=== PATIENT | male | born 2000 | race Caucasian/White ===

== ENCOUNTER → 2024-12-30 | Outpatient (CLI) | payer OTHER ==
--- NOTE | 2024-12-30 07:54 | US ---
EXAMINATION TYPE: US abdomen limited DATE OF EXAM: 12/30/2024 COMPARISON: NONE CLINICAL INDICATION: Male, 24 years old with history of R94.5 ABN RESULTS LIVER FUNCTION STUDIES; TECHNIQUE: Grayscale and color Doppler imaging of the right upper quadrant. FINDINGS: EXAM MEASUREMENTS: Liver Length: 15.7 cm Gallbladder Wall: 0.2 cm CBD: 0.3 cm, color Doppler imaging was utilized to isolate the common bile duct for measurement. Right Kidney: 11.5x6.7x6.1 cm CLINICAL STATISTICS MANAGER NOTES: limited scan due to overlying bowel/gas Pancreas: Obscured by bowel gas Liver: no obvious abnormalities seen Gallbladder: No stones seen Evidence for sonographic Schmitt's sign: No CBD: wnl Right Kidney: No hydronephrosis or masses seen slightly limited visualization due to overlying bowel Suboptimal evaluation of the pancreas. Visualized liver normal in size without concerning mass or stan manda dilatation. No surrounding ascites. No shadowing mobile gallstones. No right-sided hydronephrosis . IMPRESSION: Suboptimal study without focal intrahepatic mass or intrahepatic ductal dilatation. [facility], , 12/30/2024 7:52 AM
[2024-12-30 08:42] LABS: Lactic Acid, Venous 1.3 mmol/L (0.7-2.0)
[2024-12-30 10:50] LABS: INR 0.97 sec (0.93-1.11); Prothrombin Time 10.9 sec (9.9-11.9)
[2024-12-30 16:50] LABS: EBV-EA (IgG) 0.2 AI; EBV-EBNA(IgG) >8.0; EBV-VCA (IgG) 6.8 AI
[2024-12-31 09:58] LABS: % Iron Saturation 43.95 (15.00-50.00); ALT 190 U/L (10-49); AST 58 U/L (14-35); Albumin 4.3 g/dL (3.8-4.9); Albumin/Globulin Ratio 1.87 Ratio (1.60-3.17); Alkaline Phosphatase 105 U/L (41-126); Amylase 134 U/L (23-121); BUN/Creat Ratio 13.29 Ratio (12.00-20.00); Blood Urea Nitrogen 9.3 mg/dL (9.0-27.0); Calcium 9.6 mg/dL (8.7-10.3); Carbon Dioxide 18.3 mmol/L (21.6-31.8); Chloride 106 mmol/L (96-109); Globulin 2.3 g/dL (1.6-3.3); Glucose 98 mg/dL (70-110); Iron 149 UG/DL (65-175); Lipase 19 U/L (14-60); Potassium 4.4 mmol/L (3.5-5.5); Sodium 141 mmol/L (135-145); Total Bilirubin 0.5 mg/dL (0.3-1.2); Total Iron Binding Capacity 339 UG/DL (228-460); Total Protein 6.6 g/dL (6.2-8.2)
[2024-12-31 12:48] LABS: Smooth Muscle Antibody 6 UNITS (<20)
[2024-12-31 14:04] LABS: Lead, Blood <0.5 ug/dL (<5.0)
== END | disposition home or self-care (01) ==
LOC: RADUSWWP 07:19
PROVIDERS: ATTEND Family Medicine
DX: R94.5 Abnormal results of liver function studies (principal); R74.8 Abnormal levels of other serum enzymes; R89.9 Unspecified abnormal finding in specimens from other organs, systems and tissues
CPT/HCPCS: 76705; 80053; 82140; 82150; 82728; 83516; 83540; 83550; 83605; 83655; 83690; 85610; 85652; 86663; 86664; 86665

== ENCOUNTER 2025-03-03 09:26 | Emergency (ER) | payer OTHER ==
[2025-03-03 09:44] VITALS: BP 130/82; PULSE 83; RESP 20; TEMP 97.4
--- NOTE | 2025-03-03 10:35 | ED ---
Recheck HPI - General Chief Complaint: Recheck/Abnormal Lab/Rx Stated Complaint: Near syncope Time Seen by Provider: 03/03/25 10:26 Source: patient, family, RN notes reviewed Mode of arrival: ambulatory Limitations: no limitations - History of Present Illness Initial Comments: 24-year-old male presenting for episode of near syncope 1 hour ago. States he was at work when he started to feel became lightheaded and pale and fell to the ground. Denies hitting his head or any injuries from the fall. Patient states he started taking Clozaril 4 mg for schizophrenia last night. States he previously took this medication about 5 months ago and was taken off of it due to the side effects. States he follows with Dr. Chiki Aguirre who prescribed this medication for him. Denies headache, chest pain, shortness of breath, abdominal pain. Denies any other significant health conditions. - Related Data Allergies Allergy/AdvReac Type Severity Reaction Status Date / Time No Known Allergies Allergy Verified 03/03/25 09:44 Review of Systems ROS Statement: Those systems with pertinent positive or pertinent negative responses have been documented in the HPI. ROS Other: All systems not noted in ROS Statement are negative. Past Medical History Past Medical History: No Reported History Past Surgical History: No Surgical Hx Reported Past Psychological History: Schizophrenia Smoking Status: Current every day smoker General Exam Limitations: no limitations General appearance: alert, in no apparent distress Head exam: Present: atraumatic, normocephalic, normal inspection Eye exam: Present: normal appearance, PERRL, EOMI. Absent: scleral icterus, conjunctival injection, periorbital swelling Respiratory exam: Present: normal lung sounds bilaterally. Absent: respiratory distress, wheezes, rales, rhonchi, stridor Cardiovascular Exam: Present: regular rate, normal rhythm, normal heart sounds. Absent: systolic murmur, diastolic murmur, rubs, gallop, clicks GI/Abdominal exam: Present: soft, normal bowel sounds. Absent: distended, tenderness, guarding, rebound, rigid Neurological exam: Present: alert, oriented X3 Psychiatric exam: Present: normal affect, normal mood Skin exam: Present: warm, dry, intact, normal color. Absent: rash Course Vital Signs 03/03/25 09:41 Temperature 97.4 F L Pulse Rate 83 Respiratory 20 Rate Blood Pressure 130/82 O2 Sat by Pulse 99 Oximetry Medical Decision Making - Medical Decision Making Was pt. sent in by a medical professional or institution (, [place], [facility], urgent care, hospital, or shelter...) When possible be specific @ -No Did you speak to anyone other than the patient for history (EMS, parent, family, police, friend...)? What history was obtained from this source @ -No Did you review nursing and triage notes (agree or disagree)? Why? @ -I reviewed and agree with nursing and triage notes Were old charts reviewed (outside hosp., previous admission, EMS record, old EKG, old radiological studies, urgent care reports/EKG's, shelter records)? Report findings @ -No old charts were reviewed Differential Diagnosis (chest pain, altered mental status, abdominal pain women, abdominal pain men, vaginal bleeding, weakness, fever, dyspnea, syncope, headache, dizziness, GI bleed, back pain, seizure, CVA, palpatations, mental health, musculoskeletal)? @ -Differential Syncope: Valvular disease, hypertrophic cardiomyopathy, pulmonary embolism, tamponade, tachycardia, bradycardia, OH, hypovolemia, hemorrhage, dissection, anemia, intracranial hemorrhage, seizure, hypoglycemia, carbon monoxide poisoning, this is not meant to be an all-inclusive list. EKG interpreted by me (3pts min.). @ -As above X-rays interpreted by me (1pt min.). @ -None done CT interpreted by me (1pt min.). @ -None done U/S interpreted by me (1pt. min.). @ -None done What testing was considered but not performed or refused? (CT, X-rays, U/S, labs)? Why? @ -None What meds were considered but not given or refused? Why? @ -None Did you discuss the management of the patient with other professionals (professionals i.e. , [facility], [facility], lab, RT, psych nurse, psychiatric social worker, central office worker, teacher, highway patrol officer, piano case maker)? Give summary @ -No Was smoking cessation discussed for >3mins.? @ -No Was critical care preformed (if so, how long)? @ -No Were there social determinants of health that impacted care today? How? (Homelessness, low income, unemployed, alcoholism, drug addiction, transportation, low edu. Level, literacy, decrease access to med. care, residential, rehab)? @ -No Was there de-escalation of care discussed even if they declined (Discuss DNR or withdrawal of care, Hospice)? DNR status @ -No What co-morbidities impacted this encounter? (DM, HTN, Smoking, COPD, CAD, Cancer, CVA, ARF, Chemo, Hep., AIDS, mental health diagnosis, sleep apnea, morbid obesity)? @ -None Was patient admitted / discharged? Hospital course, mention meds given and route, prescriptions, significant lab abnormalities, going to OR and other pertinent info. @ -Discharge. 24-year-old male presenting for episode of near syncope 1 hour ago after starting clozaril last night for schizophrenia. Patient is currently asymptomatic. Vital signs within acceptable limits. EKG reveals normal sinus rhythm with no acute ST changes. Lab work unremarkable. Discussed I highly suspect near syncope was a side effect of Clozaril. Advised to follow-up with his psychiatrist today regarding further use of medication. Appropriate return precautions discussed. Case was discussed with my ED attending Dr. Saini. Undiagnosed new problem with uncertain prognosis? @ -No Drug Therapy requiring intensive monitoring for toxicity (Heparin, Nitro, Insulin, Cardizem)? @ -No Were any procedures done? @ -No Diagnosis/symptom? @ -Near syncope, medication side effect Acute, or Chronic, or Acute on Chronic? @ -Acute Uncomplicated (without systemic symptoms) or Complicated (systemic symptoms)? @ -Complicated Side effects of treatment? @ -No Exacerbation, Progression, or Severe Exacerbation? @ -No Poses a threat to life or bodily function? How? (Chest pain, [place], OH, pneumonia, PE, COPD, DKA, ARF, appy, cholecystitis, CVA, Diverticulitis, Homicidal, Suicidal, threat to staff... and all critical care pts) @ -Unlikely at this time - Lab Data Result diagrams: 03/03/25 10:52 03/03/25 10:52 Lab Results 03/03/25 03/03/25 Range/Units 10:52 10:52 WBC 6.83 (4.50-10.00) 10*3/uL RBC 4.89 (4.40-5.60) 10*6/uL Hgb 14.7 (13.0-17.0) g/dL Hct 42.5 (39.6-50.0) % MCV 86.9 (80.0-97.0) fL MCH 30.1 (27.0-32.0) pg MCHC 34.6 (32.0-37.0) g/dL Plt Count 298 (140-440) 10*3/uL MPV 10.2 (9.5-12.2) fL Immature Gran % (Auto) 0.6 % Neutrophils % 48.3 % Lymphocytes % 35.1 % Monocytes % 11.9 % Eosinophils % 2.6 % Basophils % 1.5 % Immature Gran # 0.04 (0.00-0.04) 10*3/uL Neutrophils # 3.30 (1.80-7.70) 10*3/uL Lymphocytes # 2.40 (0.90-5.00) 10*3/uL Monocytes # 0.81 (0.20-1.00) 10*3/uL Eosinophils # 0.18 (0.04-0.35) 10*3/uL Basophils # 0.10 (0.00-0.10) 10*3/uL Sodium 142 (137-145) mmol/L Potassium 3.6 (3.5-5.1) mmol/L Chloride 105 (98-107) mmol/L Carbon Dioxide 26 (22-30) mmol/L Anion Gap 11 mmol/L BUN 10 (9-20) mg/dL Creatinine 0.67 (0.66-1.25) mg/dL Est GFR (CKD-EPI)AfAm >90 (>60 ml/min/1.73 sqM) Est GFR (CKD-EPI)NonAf >90 (>60 ml/min/1.73 sqM) Glucose 98 (74-99) mg/dL Calcium 10.1 (8.4-10.2) mg/dL Total Bilirubin 0.5 (0.2-1.3) mg/dL AST 28 (17-59) U/L ALT 22 (4-49) U/L Alkaline Phosphatase 89 (38-126) U/L Total Protein 7.0 (6.3-8.2) g/dL Albumin 4.4 (3.5-5.0) g/dL - EKG Data -: EKG Interpreted by Ma EKG Comments: EKG reveals normal sinus rhythm with no acute ST changes. Ventricular rate 77 bpm, NC interval 169, QRS duration 109, QT/QTc 390/421 Disposition Clinical Impression: Medication side effect, Near syncope Disposition: HOME SELF-CARE Condition: Stable Additional Instructions: Please follow-up with your psychiatrist today for further instruction regarding medication use. Please return to the Emergency Department if symptoms worsen or any other concerns. Is patient prescribed a controlled substance at d/c from ED?: No Referrals: None,Stated [Primary Care Provider] - 1-2 days Time of Disposition: 11:51
[2025-03-03] MEDS: SODIUM CHLORIDE 0.9% 1,000 ML IV STA (10:56)
[2025-03-03 11:06] LABS: Basophils # (A) 0.10 10*3/uL (0.00-0.10); Basophils % (A) 1.5 %; Eosinophils # (A) 0.18 10*3/uL (0.04-0.35); Eosinophils % (A) 2.6 %; HCT 42.5 % (39.6-50.0); HGB 14.7 g/dL (13.0-17.0); Lymphocytes # (A) 2.40 10*3/uL (0.90-5.00); Lymphocytes % (A) 35.1 %; MCH 30.1 pg (27.0-32.0); MCHC 34.6 g/dL (32.0-37.0); MCV 86.9 fL (80.0-97.0); Monocytes # (A) 0.81 10*3/uL (0.20-1.00); Monocytes % (A) 11.9 %; Neutrophils # (A) 3.30 10*3/uL (1.80-7.70); Neutrophils % (A) 48.3 %; Platelet Count 298 10*3/uL (140-440); RBC 4.89 10*6/uL (4.40-5.60); RDW 13.1 % (11.5-14.5); WBC 6.83 10*3/uL (4.50-10.00)
[2025-03-03 11:16] LABS: ALT 22 U/L (4-49); AST 28 U/L (17-59); African American GFR (CKD) >90 (>60 ml/min/1.73 sqM); Albumin 4.4 g/dL (3.5-5.0); Alkaline Phosphatase 89 U/L (38-126); Anion Gap 11 mmol/L; Blood Urea Nitrogen 10 mg/dL (9-20); Calcium 10.1 mg/dL (8.4-10.2); Carbon Dioxide 26 mmol/L (22-30); Chloride 105 mmol/L (98-107); Glucose 98 mg/dL (74-99); Non-African American GFR(CKD) >90 (>60 ml/min/1.73 sqM); Potassium 3.6 mmol/L (3.5-5.1); Sodium 142 mmol/L (137-145); Total Protein 7.0 g/dL (6.3-8.2)
== END 2025-03-03 12:01 | disposition home or self-care (01) ==
LOC: EC 09:26
DX: R55 Syncope and collapse (principal); T50.995A Adverse effect of other drugs, medicaments and biological substances, initial encounter; F17.200 Nicotine dependence, unspecified, uncomplicated; W19.XXXA Unspecified fall, initial encounter
CPT/HCPCS: 36415; 80053; 85025; 93005; 96360; 99284